=== PATIENT | female | born 1980 | race African-American/Black ===

== ENCOUNTER 2018-03-17 17:49 | Emergency (ER) | payer BC, OTHER ==
[~2018-03-17] VITALS: Ht 167.6 cm; Wt 72.6 kg
[~2018-03-17 17:49] MED LIST: ALEVE220 MG PO; IRON325 PO; MULTIVITAMINS PO
[2018-03-17] MEDS ORDERED: NORCO 5-325 TA1 EACH PO (19:41)
== END 2018-03-17 20:28 | disposition home or self-care (01) ==
LOC: ER 17:49
DX: S92.001A Unspecified fracture of right calcaneus, initial encounter for closed fracture (principal); M54.5 Low back pain; M41.9 Scoliosis, unspecified; X50.1XXA Overexertion from prolonged static or awkward postures, initial encounter; Y92.89 Other specified places as the place of occurrence of the external cause; Y93.89 Activity, other specified; Y99.8 Other external cause status